=== PATIENT | male | born 2000 | race American Indian/Alaskan Native ===

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

== ENCOUNTER 2021-03-08 08:48 | Day surgery (SDC) | payer MEDICAID ==
[2021-03-08] MEDS ORDERED: Dextrose 5%-Lactated Ringers 1,000 ML IV SCH (09:15)
[2021-03-08 09:40] LABS: CORONAVIRUS COVID-19 NAA NEGATIVE (NEGATIVE)
[2021-03-08] MEDS ORDERED: Glycopyrrolate 0.2 MG/ML 2 ML SDV IVPUSH ONE (10:00)
[2021-03-08] MEDS ORDERED: Propofol 200 MG/20 ML SDV ONE ×2 (11:55→11:56)
--- NOTE | 2021-03-10 09:16 | OR ---
DATE OF PROCEDURE: 03/08/2021 SURGEON: Mahad Pak MD PREOPERATIVE DIAGNOSIS: Malpositioned gastrojejunal feeding tube. POSTOPERATIVE DIAGNOSIS: Malpositioned gastrojejunal feeding tube. OPERATIVE PROCEDURE: Upper GI endoscopy with corrected placement of gastrojejunal tube with the tip manipulated into the jejunum (15214). ANESTHESIA: IV sedation. INDICATIONS FOR PROCEDURE: This is a 20-year-old patient presenting with malpositioned gastrojejunal feeding tube with the tip of the tube remaining in the stomach. Plan is to proceed with upper GI endoscopy with manipulation of the tube downwards into the jejunum. Potential risks of the procedure including bleeding and perforation were discussed with the patient's mother, and she wishes to proceed. DETAILS OF PROCEDURE: The patient was taken to the operating room and placed in a left lateral decubitus position. IV sedation was administered after which the upper GI endoscope was passed orally through the length of the esophagus and into the stomach. The tip of the gastrojejunal tube was then grasped with alligator forceps and carried by means of a gastroscope through the pylorus into the distal duodenum and from there into the proximal jejunum. The tube was then released, and the scope withdrawn, and the tube was confirmed to remain in place with withdrawal of the scope, and the procedure was concluded. There were no evident complications. Mahad Pak MD Job #: [id number]
== END 2021-03-08 13:15 | disposition home or self-care (01) ==
LOC: JP.SDS 08:48
PROVIDERS: ATTEND Surgery
DX: K94.29 Other complications of gastrostomy (principal); Z88.1 Allergy status to other antibiotic agents; Z01.812 Encounter for preprocedural laboratory examination; Z20.822 Contact with and (suspected) exposure to COVID-19
CPT/HCPCS: 0241U; 43241; J2704; J3490; J7121

== ENCOUNTER 2021-12-10 09:15 | Day surgery (SDC) | payer MEDICAID ==
[2021-12-10] MEDS ORDERED: Dextrose 5%-Lactated Ringers 1,000 ML IV SCH (09:30)
[2021-12-10] MEDS ORDERED: Propofol 200 MG/20 ML SDV ONE (11:52)
[2021-12-10] MEDS ORDERED: Aluminum Sulf/Calcium Acetate 5 EACH, Water For Injection,Sterile 75 ML, Petrolatum,Whi... TOP SCH ×5 (12:00)
[2021-12-10 13:13] VITALS: BP 130/63; PULSE 67
== END 2021-12-10 13:31 | disposition home or self-care (01) ==
LOC: JP.SDS 09:15
PROVIDERS: ATTEND Surgery
DX: K94.23 Gastrostomy malfunction (principal); Z88.8 Allergy status to other drugs, medicaments and biological substances; Z88.1 Allergy status to other antibiotic agents; Z01.812 Encounter for preprocedural laboratory examination; Z20.822 Contact with and (suspected) exposure to COVID-19; Z79.899 Other long term (current) drug therapy
CPT/HCPCS: 36415; 76000; 80048; A9270-GY; J2704; J7121; U0002

== ENCOUNTER 2022-02-21 10:07 | Day surgery (SDC) | payer MEDICAID ==
[~2022-02-21 10:07] MED LIST: Propofol 200 MG/20 ML SDV ONE; fentaNYL 100 MCG/2 ML SDV ONE
[2022-02-21] MEDS ORDERED: Dextrose 5%-Lactated Ringers 1,000 ML IV SCH (11:00)
== END 2022-02-21 12:41 | disposition home or self-care (01) ==
LOC: JP.SDS 10:07
PROVIDERS: ATTEND Surgery
DX: K94.23 Gastrostomy malfunction (principal); Z88.1 Allergy status to other antibiotic agents; Z88.8 Allergy status to other drugs, medicaments and biological substances; Z79.899 Other long term (current) drug therapy
CPT/HCPCS: 43241; J1642; J2704; J3010; J7121

== ENCOUNTER 2022-03-06 14:07 | Day surgery (SDC) | payer MEDICAID ==
[~2022-03-06 14:07] MED LIST changes: +Bupivacaine 0.5%/EPINEPHrine 1:200,000 50 ML MDV ONE; +Lidocaine 0.5% 50 ML SDV ONE; -fentaNYL 100 MCG/2 ML SDV ONE
[2022-03-06] MEDS ORDERED: MVI, Adult with Vitamin K 10 ML, Zinc/Copper/Manganese/Selenium 1 ML, Thiamine 100 MG i... IV ONE ×4 (14:15)
[2022-03-06] MEDS ORDERED: Glycopyrrolate 0.2 MG/ML 2 ML SDV IV ONE (14:15)
[2022-03-06] MEDS ORDERED: Propofol 200 MG/20 ML SDV ONE (15:33)
[2022-03-06] MEDS ORDERED: Dextrose 5%-Lactated Ringers 1,000 ML IV SCH (17:15)
== END 2022-03-06 19:30 | disposition home or self-care (01) ==
LOC: JP.SDS 14:07
PROVIDERS: ATTEND Surgery
DX: K94.23 Gastrostomy malfunction (principal); Z79.899 Other long term (current) drug therapy; Z88.1 Allergy status to other antibiotic agents
CPT/HCPCS: J2704; J3411; J3490; J7120; J7121

== ENCOUNTER 2022-11-19 17:30 | Emergency (ER) | payer MEDICARE, MEDICAID | END 2022-11-19 19:36 | disposition home or self-care (01) | LOC: JP.ED 17:30 | DX: T88.1XXA Other complications following immunization, not elsewhere classified, initial encounter (principal); R56.9 Unspecified convulsions; R09.02 Hypoxemia; I48.91 Unspecified atrial fibrillation; I25.2 Old myocardial infarction; Z79.899 Other long term (current) drug therapy; Z88.1 Allergy status to other antibiotic agents; Z88.8 Allergy status to other drugs, medicaments and biological substances | CPT/HCPCS: 93005; 99284 ==

== ENCOUNTER 2023-04-20 09:01 | Emergency (ER) | payer MEDICARE, MEDICAID ==
[2023-04-20] MEDS ORDERED: Lidocaine 1% 10 ML MDV INJECT ONE (10:30)
[2023-04-20] MEDS ORDERED: HYDROmorphone 1 MG/ML Syringe IM ONE (11:42)
[2023-04-20] MEDS ORDERED: Iopamidol 612 MG/ML 30 ML SDV PO ONE (13:41)
== END 2023-04-20 12:50 | disposition home or self-care (01) ==
LOC: JP.ED 09:01
DX: K94.23 Gastrostomy malfunction (principal); I48.91 Unspecified atrial fibrillation; Z79.899 Other long term (current) drug therapy; Z88.1 Allergy status to other antibiotic agents; Z88.8 Allergy status to other drugs, medicaments and biological substances
CPT/HCPCS: 43762; 49450; 99282; J1170; Q9967

== ENCOUNTER 2024-07-02 13:00 | Emergency (ER) | payer MEDICARE, OTHER ==
[2024-07-02 13:39] LABS: HEMATOCRIT 32.9 % (38.4-49.7); HEMOGLOBIN 10.7 g/dL (12.9-16.9); LYMPHOCYTES PERCENT AUTO 28.9 % (11.4-47.7); MEAN CORPUSCULAR HEMOGLOBIN 31.1 pg (31.6-35.5); MEAN CORPUSCULAR HGB CONC 32.5 g/dL (31.6-35.5); MEAN CORPUSCULAR VOLUME 95.6 fL (81.4-99.0); NEUTROPHILS PERCENT AUTO 61.8 % (40.0-78.1); PLATELET COUNT,PLT 233 K/uL (130-375); RED BLOOD CELL COUNT 3.44 M/uL (4.14-5.76); WHITE BLOOD CELL COUNT,WBC 6.7 K/uL (3.2-11.0)
[2024-07-02 13:40] LABS: BASOPHILS ABSOLUTE AUTO 0.04 K/uL (0.00-0.10); BASOPHILS PERCENT AUTO 0.6 % (0.1-1.3); EOSINOPHILS ABSOLUTE AUTO 0.02 K/uL (0.00-0.40); EOSINOPHILS PERCENT AUTO 0.3 % (0.0-5.4); IMMATURE GRAN ABSOLUTE AUTO 0.03 K/uL (0.00-0.23); IMMATURE GRAN PERCENT AUTO 0.4 % (0.0-0.7); LYMPHOCYTES ABSOLUTE AUTO 1.95 K/uL (0.8-3.3); MONOCYTES ABSOLUTE AUTO 0.54 K/uL (0.20-0.90); NEUTROPHILS ABSOLUTE AUTO 4.16 K/uL (1.0-7.6)
[2024-07-02 14:00] LABS: CALCIUM 9.6 mg/dL (8.5-10.1); CREATININE 0.5 mg/dL (0.8-1.3); EST CRCL DRUG DOSING (CG) 267.15 mL/min
== END 2024-07-02 14:30 | disposition home or self-care (01) ==
LOC: JP.ED 13:00
DX: Z45.2 Encounter for adjustment and management of vascular access device (principal); R53.83 Other fatigue; Z88.1 Allergy status to other antibiotic agents; Z88.8 Allergy status to other drugs, medicaments and biological substances; Z79.899 Other long term (current) drug therapy
CPT/HCPCS: 36415; 80048; 85025; 99283